=== PATIENT | male | born 1985 ===

== ENCOUNTER 2022-01-23 20:09 | Emergency (ER) | payer SELFPAY ==
--- NOTE | 2022-01-23 23:42 | Emergency Department Report ---
HPI - General Chief Complaint: Allergic Reaction Time Seen by Provider: 01/23/22 20:53 - HPI HPI: Patient is a 36-year-old male brought in by EMS for evaluation of allergic reaction after being stung by bee approximately 2 hours prior to arrival with development of swelling/erythema in the eyelids, arms and legs. He denies any oral swelling, shortness of breath. He was given IV Solu-Medrol and Benadryl prior to arrival. Symptoms improved on arrival. ED Past Medical Hx - Past Medical History Previous Medical History?: No Additional medical history: Prior shoulder dislocations - Surgical History Past Surgical History?: No - Social History Smoking Status: Never Smoker Substance Use Type: Alcohol - Medications Home Medications: Home Medications Medication Instructions Recorded Confirmed Last Taken Type HYDROcodone/APAP 10-325 [[place] 1 each PO Q6HR PRN #30 tablet 03/12/15 Unknown Rx 10/325] Naproxen [Naprosyn TAB] 500 mg PO BID PRN #30 tablet 03/12/15 Unknown Rx EPINEPHrine [Epipen 2-Nikita] 0.3 mg IM ONCE #1 ml 01/24/22 Unknown Rx ED Review of Systems ROS: Stated complaint: ALLERGIC RX Other details as noted in HPI Comment: All other systems reviewed and negative Constitutional: denies: chills, fever Respiratory: denies: cough, shortness of breath, wheezing Cardiovascular: as per HPI Gastrointestinal: denies: abdominal pain, nausea, diarrhea Genitourinary: denies: urgency, dysuria Musculoskeletal: denies: back pain, joint swelling, arthralgia Skin: denies: rash, lesions Neurological: denies: headache, weakness, paresthesias Psychiatric: denies: anxiety, depression Physical Exam - Physical Exam Vital Signs: Vital Signs 01/23/22 20:09 Temperature 98 F Pulse Rate 109 H Respiratory 20 Rate Blood Pressure 140/90 O2 Sat by Pulse 99 Oximetry Physical Exam: General: Alert and oriented x3, no acute distress Head: Normocephalic, atraumatic Eyes: PERRLA, EOMI ENT: Normal oropharynx, TMs clear Neck: Supple, nontender, no JVD, FROM Cardiac: Regular rate, regular rhythm, no murmurs, gallops or rubs Respiratory: Clear to auscultation bilaterally, no wheezes, rales, normal work of breathing Abdomen: Soft, nontender, nondistended, normal bowel sounds Urogenital: Exam deferred Musculoskeletal: Full range of motion in all extremities, no obvious deformities, no tenderness, normal strength Back: Nontender, no step-offs, Full range of motion Skin: Warm, dry, intact, appropriate for ethnicity, no rashes or lesions Neurological: Cranial nerves II through XII grossly intact Psych: Normal mood and affect ED Course Vital Signs 01/23/22 20:09 Temperature 98 F Pulse Rate 109 H Respiratory 20 Rate Blood Pressure 140/90 O2 Sat by Pulse 99 Oximetry ED Medical Decision Making - Medical Decision Making Patient monitored in ED for several hours with no complications. He is stable for discharge home with return precautions. Critical care attestation.: If time is entered above; I have spent that time in minutes in the direct care of this critically ill patient, excluding procedure time. ED Disposition Clinical Impression: Allergic reaction, Allergy to bee sting Disposition: 01 HOME / SELF CARE / HOMELESS Is pt being admited?: No Condition: Stable Instructions: Allergies, Adult, [id number] Additional Instructions: Please follow-up with your regular doctor as needed. You may return if your symptoms worsen. Time of Disposition: 00:47 Print Language: CROATIAN
[2022-01-24 00:44] VITALS: BP 136/78
== END 2022-01-24 01:56 | disposition home or self-care (01) ==
LOC: ED 20:09
DX: T63.441A Toxic effect of venom of bees, accidental (unintentional), initial encounter (principal); Y92.89 Other specified places as the place of occurrence of the external cause
CPT/HCPCS: 99283